=== PATIENT | female | born 1970 | race Caucasian/White ===

== ENCOUNTER 2023-08-06 20:02 | Emergency (ER) | payer OTHER ==
[~2023-08-06] VITALS: Ht 162.6 cm; Wt 102.1 kg
[2023-08-06 20:45] VITALS: BP 147/80; PULSE 101; RESP 18; TEMP 96.4; O2SAT 100
[2023-08-06] MEDS ORDERED: IBUPROFEN 600 MG TAB PO ONE (22:35)
== END 2023-08-06 23:25 | disposition left against medical advice (07) ==
LOC: MED 20:02
DX: M54.50 Low back pain, unspecified (principal); Z53.21 Procedure and treatment not carried out due to patient leaving prior to being seen by health care provider
CPT/HCPCS: 99281